=== PATIENT | male | born 1995 ===

== ENCOUNTER → 2019-01-04 | Emergency (ER) | payer SELFPAY ==
[~2019-01-04] VITALS: Ht 188 cm; Wt 136.1 kg
--- OUTSIDE RECORDS SUMMARY | 2019-01-04 10:49 | XMS REPORT | Continuity of Care Document ---
Author Author [facility] Organization [facility] Address [facility] [address] [place] [address] Phone Unavailable Support Name Relationship Address Phone OANH THORPE D.O. Caregiver [address] [place] [address] VALDEZ GOMEZ DO Caregiver [address] [place], [place] [address] SCARLETT MOONEY Next Of Kin [address] [place] [address] Insurance Providers Payer Name Policy Number Subscriber Name Relationship [employer] Other [id number] Oanh Mooney 20 Child Advance Directives Directive Response Recorded Date/Time Advance Directives No 08/12/13 10:05pm Living Will No 08/12/13 10:05pm Health Care Proxy No 02/01/17 10:02pm Power of Art Psychotherapist for Health Care No 08/12/13 10:05pm Organ, Tissue, or Eye Donor No 08/12/13 10:04pm Do you have a signed organ donor card? No 08/12/13 10:04pm Chief Complaint and Reason for Visit Chief Complaint ANKLE PAIN Reason for Visit [id number] Problems Active Problems Medical Problem Onset Date Status Left ankle sprain Unknown Acute foot strain Unknown Acute Medications Current Home Medications Medication Dose Units Route Directions Days/Qty Instructions Start Date Meloxicam 15 Mg 15 Mg Oral Daily 30 02/01/17 Social History Social History Problem Response Recorded Date/Time Smoking Status Never smoker 08/12/2013 10:22pm Tobacco Use Denies Use 02/01/2017 9:45pm Alcohol Use none 02/01/2017 9:45pm Query Response Start Date Stop Date Smoking Status Never smoker Hospital Discharge Instructions No hospital discharge instructions. Plan of Care Discharge Date 02/01/17 10:20pm Disposition 01 HOME, GROUP HOME,ASSISTED LIVING Condition at Discharge Stable Instructions/Education Provided Ankle Sprain (ED) Prescriptions See Medication Section Referrals OANH TOHRPE D.O. - Functional Status Query Response Date Recorded [place] Coma Scale Total 15 February 01, 2017 9:31pm Patient Behavior Appropriate February 01, 2017 9:31pm Allergies, Adverse Reactions, Alerts No known allergies. Immunizations Name Given Type Hx Diphtheria, Pertussis, Tetanus Vaccination Up To Date Historical Hx Influenza Vaccination No Historical Hx Pneumococcal Vaccination No Historical Vital Signs Acute Vital Signs Vital Response Date/Time Temperature (Fahrenheit) 98.9 degrees F (97.6 - 99.5) 02/01/2017 10:15pm Temperature Source Temporal Artery 02/01/2017 10:15pm Pulse Rate (adult) 110 bpm (60 - 90) 02/01/2017 10:15pm Respiratory Rate 20 bpm (12 - 24) 02/01/2017 10:15pm Blood Pressure 145/75 mm Hg 02/01/2017 10:15pm O2 Sat by Pulse Oximetry 98 % (90 - 100) 02/01/2017 10:15pm Oxygen Delivery Method 02/01/2017 10:15pm Height 6 ft 1 in Weight 330 lb Body Mass Index 43.0 kg/m^2 Results No known relevant diagnostic tests, laboratory data and/or discharge summary. Procedures Procedure Status Date Provider(s) X-ray of left ankle, three or more views Active 02/01/17 VALDEZ GOMEZ DO Encounters Encounter Location Arrival/Admit Date Discharge/Depart Date Attending Provider Departed Emergency Room [place] 02/01/17 9:32pm 02/01/17 10:20pm VALDEZ GOMEZ DO Recent Diagnosis
--- OUTSIDE RECORDS SUMMARY | 2019-01-04 10:49 | XMS REPORT | Continuity of Care Document ---
Author Author [facility] Organization [facility] Address [facility] [address] [place] [address] Phone Unavailable Support Name Relationship Address Phone OANH THORPE D.O. Caregiver [address] [place] [address] SCARLETT MOONEY Next Of Kin [address] [place] [address] Insurance Providers Payer Name Policy Number Subscriber Name Relationship [employer] Other [id number] Oanh Mooney 20 Child Advance Directives Directive Response Recorded Date/Time Advance Directives No 08/12/13 10:05pm Living Will No 08/12/13 10:05pm Health Care Proxy No 05/24/17 7:18am Power of Electrical Prospecting Supervisor for Health Care No 08/12/13 10:05pm Organ, Tissue, or Eye Donor No 08/12/13 10:04pm Do you have a signed organ donor card? No 08/12/13 10:04pm Chief Complaint and Reason for Visit Chief Complaint SORE THROAT Reason for Visit [id number] Headache Hyperglycemia Problems Active Problems Medical Problem Onset Date Status Headache Unknown Acute Hyperglycemia Unknown Acute Left ankle sprain Unknown Acute Tonsillitis with exudate Unknown Acute foot strain Unknown Acute Medications Current Home Medications Medication Dose Units Route Directions Days/Qty Instructions Start Date Meloxicam 15 Mg 15 Mg Oral Daily 30 02/01/17 Amoxicillin 875 Mg 875 Mg Oral Twice A Day 20 05/24/17 Social History Social History Problem Response Recorded Date/Time Smoking Status Never smoker 08/12/2013 10:22pm Tobacco Use Denies Use 02/01/2017 9:45pm Alcohol Use none 05/24/2017 7:21am Drug Use none 05/24/2017 7:21am Employment Student 05/24/2017 7:21am Query Response Start Date Stop Date Smoking Status Never smoker Hospital Discharge Instructions No hospital discharge instructions. Plan of Care Discharge Date 05/24/17 8:18am Condition at Discharge Stable Instructions/Education Provided Pharyngitis (ED) Prescriptions See Medication Section Referrals OANH THOREP D.O. - 1 Week Additional Instructions/Education Take ibuprofen 800 mg every six hours for the next three days as it will help with her fever and the swelling in her throat. Take the antibiotic twice daily until the bottle is empty. Since her blood sugar was elevated in the emergency room followup in the office in one week to recheck your blood sugar. Functional Status Query Response Date Recorded Patient Behavior Cooperative Appropriate May 24, 2017 6:59am Allergies, Adverse Reactions, Alerts No known allergies. Immunizations Name Given Type Hx Diphtheria, Pertussis, Tetanus Vaccination Up To Date Historical Hx Influenza Vaccination N refuses Historical Hx Pneumococcal Vaccination No Historical Vital Signs Acute Vital Signs Vital Response Date/Time Temperature (Fahrenheit) 99.0 degrees F (97.6 - 99.5) 05/24/2017 8:18am Temperature Source Temporal Artery 05/24/2017 8:18am Pulse Rate (adult) 96 bpm (60 - 90) 05/24/2017 8:18am Respiratory Rate 18 bpm (12 - 24) 05/24/2017 8:18am Blood Pressure 133/71 mm Hg 05/24/2017 8:18am O2 Sat by Pulse Oximetry 97 % (90 - 100) 05/24/2017 8:18am Oxygen Delivery Method 05/24/2017 8:18am Height 6 ft 1 in Weight 271 lb Body Mass Index 35.0 kg/m^2 Results Laboratory Results Test Name Result Units Flags Reference Collection Date/Time Result Date/ Time Comments Alanine Aminotransferase (ALT/SGPT) 30 U/L 12-78 05/23/2017 12:03pm 06/2017 12:50pm Lactate Dehydrogenase 156 U/L 85-227 05/23/2017 12:03pm 05/23/2017 12: 50pm Total Creatine Kinase 210 U/L 39-308 05/23/2017 12:03pm 05/23/2017 12: 50pm Pending Laboratory Results Test Name Collection Date/Time Procedures No known history of procedures. Encounters Encounter Location Arrival/Admit Date Discharge/Depart Date Attending Provider Departed Emergency Room [place] 05/24/17 7:00am 05/24/17 8:18am OANH THORPE D.O. Departed Emergency Room [place] 05/23/17 11:08am 05/23/17 1:00pm OANH THORPE D.O. Recent Diagnosis
--- OUTSIDE RECORDS SUMMARY | 2019-01-04 10:49 | XMS REPORT ---
Author Author BRADLEY DILLON [facility] Address [address] [place] [address] Phone Unavailable Care Team Providers Care Jewelry Technician Name Role Phone BRADLEY DILLON Unavailable Unavailable PROBLEMS Unknown Problems ALLERGIES No Known Allergies ENCOUNTERS Encounter Location Date Diagnosis [facility] [address] [id number], [place] [address] Jun, Contusion of abdominal wall, [facility] [id number], [place] [address] Apr, Possible exposure to STD Z20.2 IMMUNIZATIONS No Known Immunizations SOCIAL HISTORY Never Assessed REASON FOR VISIT bent over in the middle of the noc et grabbed his cell phone off the floor...hit his left side on his dresser et has pain there for the past week. also has some left rib pain. [email or web address] PLAN OF CARE Activity Details Follow Up prn Reason: VITAL SIGNS Height 73.5 in 2018-06-22 Weight 293.4 lbs 2018-06-22 Temperature 98.0 degrees Fahrenheit 2018-06-22 Heart Rate 88 bpm 2018-06-22 Respiratory Rate 20 2018-06-22 BMI 38.18 kg/m2 2018-06-22 Blood pressure systolic 146 mmHg 2018-06-22 Blood pressure diastolic 86 mmHg 2018-06-22 MEDICATIONS No Known Medications RESULTS No Results PROCEDURES No Known procedures INSTRUCTIONS MEDICATIONS ADMINISTERED No Known Medications MEDICAL (GENERAL) HISTORY Type Description Date Hospitalization History No know Hospitalization history
--- OUTSIDE RECORDS SUMMARY | 2019-01-04 10:49 | XMS REPORT ---
Author Author [facility]L GROVE [facility] Address [address] [place] [address] Care Team Providers Care Agriculture Engineer Name Role Phone CHERYL GROVE Unavailable PROBLEMS Unknown Problems ALLERGIES No Known Allergies ENCOUNTERS Encounter Location Date Diagnosis [facility] [address] [facility] [id number] [address] Jun, Contusion of abdominal wall, initial encounter [facility]30[facility] [address] [id number], [place] [address] Apr, Possible exposure to STD Z20.2 IMMUNIZATIONS No Known Immunizations SOCIAL HISTORY Never Assessed REASON FOR VISIT STD check, Pt had a cold sore on his lip for about a week then went away and now has a spot on his penis.--TREMAINE Loyola PLAN OF CARE Activity Details Follow Up prn Reason: VITAL SIGNS Height 73.5 in 2018-05-10 Weight 289.4 lbs 2018-05-10 Temperature 98.6 degrees Fahrenheit 2018-05-10 Heart Rate 84 bpm 2018-05-10 Respiratory Rate 18 2018-05-10 BMI 37.66 kg/m2 2018-05-10 Blood pressure systolic 152 mmHg 2018-05-10 Blood pressure diastolic 72 mmHg 2018-05-10 MEDICATIONS No Known Medications RESULTS No Results PROCEDURES Procedure Date Ordered Result Body Site No Charge May 10, 2018 HERPES SIMPLEX TYPE 2 May 10, 2018 HERPES SIMPLEX TEST May 10, 2018 VENIPUNCT, ROUTINE* May 10, 2018 INSTRUCTIONS MEDICATIONS ADMINISTERED No Known Medications
--- OUTSIDE RECORDS SUMMARY | 2019-01-04 10:49 | XMS REPORT | Continuity of Care Document ---
Author Author [facility] Organization [facility] Address [facility] [address] [place] [address] Phone Unavailable Support Name Relationship Address Phone OANH THORPE D.O. Caregiver [address] [place] [address] SCARLETT MOONEY Next Of Kin [address] [place] [address] Insurance Providers Payer Name Policy Number Subscriber Name Relationship [employer] Other [id number] Oanh Mooney 20 Child Advance Directives Directive Response Recorded Date/Time Advance Directives No 08/12/13 10:05pm Living Will No 08/12/13 10:05pm Health Care Proxy No 05/24/17 7:18am Power of Direct Support Worker for Health Care No 08/12/13 10:05pm Organ, Tissue, or Eye Donor No 08/12/13 10:04pm Do you have a signed organ donor card? No 08/12/13 10:04pm Chief Complaint and Reason for Visit Chief Complaint SORE THROAT Reason for Visit [id number] Headache Hyperglycemia Problems Active Problems Medical Problem [...] (ED) Prescriptions See Medication Section Referrals OANH THORPE D.O. - 1 Week Additional Instructions/Education Take [...] Discharge/Depart Date Attending Provider Departed Emergency Room [place] 05/24/17 7:00am 05/24/17 8:18am OANH THORPE D.O. Registered Emergency Room [place] 05/23/17 11:08am OANH THORPE D.O. Recent Diagnosis
[2019-01-04 11:56] VITALS: BP 143/70
== END | disposition home or self-care (01) ==
LOC: ER 10:37
DX: S99.921A Unspecified injury of right foot, initial encounter (principal); W22.09XA Striking against other stationary object, initial encounter; Y99.0 Civilian activity done for income or pay; Y92.59 Other trade areas as the place of occurrence of the external cause
CPT/HCPCS: 99281